=== PATIENT | female | born 1940 | race Asian ===

== ENCOUNTER 2018-04-02 11:55 | Emergency (ER) | payer MEDICARE, OTHER ==
[~2018-04-02] VITALS: Ht 144.8 cm; Wt 51.3 kg
[~2018-04-02 11:55] MED LIST: ATENOLOL50 MG PO; CALCIUM CITRAT250 MG PO; COL100 PO; ECOTRIN81 MG PO; FERROUS SULFAT325 M2 PO; GOOD SENSE ASPI81 M3 PO; HEP5I SC; LEVOTHYROXIN0.075 M2 PO; LEVOXYL0.088 MG PO; MIANS; MOR2I IV; NORCO1 TA2 PO; OSCD PO; OSTEO BI-FLEX1 TAB PO; PRI20 PO; PRINIVIL10 MG PO; SLOW MAG PO; TENORMIN50 MG PO; TRICOR48 M1 PO; VITAMIN C1000 M2 PO; VITAMIN D3400 I1 PO; VITAMIN-D1000 IU
[2018-04-02 12:02] VITALS: Ht 144.8 cm; Wt 51.3 kg
[2018-04-02 12:52] LABS: BASOPHIL % 0.5 % (0-2); PLATELET COUNT 199 x10^3mcL (130-400); RED CELL DISTRIBUTION WIDTH 17.4 % (11.5-14.5)
[2018-04-02 12:54] LABS: CARBON DIOXIDE 24.2 mmol/L (21-32); CHLORIDE SERUM 97 mmol/L (98-107); CREATININE SERUM 1.3 mg/dL (0.6-1.0); GLUCOSE SERUM 117 mg/dL (74-106); SODIUM SERUM 133 mmol/L (136-145)
[2018-04-02 12:58] LABS: ALKALINE PHOSPHATASE 65 U/L (46-116); BILIRUBIN TOTAL 0.41 mg/dL (0.20-1.00); TOTAL PROTEIN, SERUM 7.6 g/dL (6.4-8.2)
[2018-04-02 13:07] LABS: FREE T4 1.2 ng/dL (0.76-1.46); FREE THYROXINE INDEX 3.2 ug/dL (1.4-4.5); T4(THYROXINE) 8.3 ug/dL (4.7-13.3)
[2018-04-02 13:13] LABS: T3 TOTAL 0.83 ng/mL
[2018-04-02 13:19] LABS: ALT/SGPT 28 U/L (14-59); AST/SGOT 49 U/L (15-37)
[2018-04-02 15:37] VITALS: BP 153/79
== END 2018-04-02 15:37 | disposition home or self-care (01) ==
LOC: ED 11:55
PROVIDERS: Emergency Medicine
DX: I10 Essential (primary) hypertension (principal); C64.9 Malignant neoplasm of unspecified kidney, except renal pelvis; Z86.73 Personal history of transient ischemic attack (TIA), and cerebral infarction without residual deficits; Z88.2 Allergy status to sulfonamides; Z98.890 Other specified postprocedural states
CPT/HCPCS: 83880; 84439; J0360

== ENCOUNTER 2020-08-19 14:30 | Emergency (ER) | payer MEDICARE, OTHER ==
[~2020-08-19] VITALS: Ht 144.8 cm; Wt 52.2 kg
[2020-08-19 14:34] VITALS: Ht 144.8 cm; Wt 52.2 kg
[2020-08-19 16:07] VITALS: BP 154/64
== END 2020-08-19 16:07 | disposition home or self-care (01) ==
LOC: ED 14:30
DX: S63.501A Unspecified sprain of right wrist, initial encounter (principal); S89.91XA Unspecified injury of right lower leg, initial encounter; I10 Essential (primary) hypertension; Z86.73 Personal history of transient ischemic attack (TIA), and cerebral infarction without residual deficits; Z98.890 Other specified postprocedural states; Z88.2 Allergy status to sulfonamides; W01.0XXA Fall on same level from slipping, tripping and stumbling without subsequent striking against object, initial encounter; Y93.89 Activity, other specified; Y92.89 Other specified places as the place of occurrence of the external cause; Y99.8 Other external cause status